=== PATIENT | female | born 1965 | race African-American/Black ===

== ENCOUNTER 2020-04-13 01:17 | Emergency (ER) | payer BC ==
[~2020-04-13] VITALS: Ht 170.2 cm; Wt 99.3 kg
[2020-04-13 01:24] VITALS: BP_SYST 146
[2020-04-13 02:20] VITALS: BP_SYST 146
== END 2020-04-13 02:20 ==
LOC: SED 01:17
DX: I10 Essential (primary) hypertension (principal); R51 Headache
CPT/HCPCS: 99283